=== PATIENT | male | born 1970 | race Caucasian/White ===

== ENCOUNTER 2016-08-15 11:25 | Day surgery (SDC) | payer BC ==
[2016-08-05 07:51] LABS: HEMATOCRIT 43.1 % (40.0-51.0)
--- NOTE | ~2016-08-15 | OP ---
Record Of Operation [facility] [address] [place]. [address] NAME: DEWAYNE TAFOYA : 68 STATUS : REG [facility] [place] PAT#: [id number] AGE: 46 ADM/REG DATE : 08/15/16 MR#: [id number] REPORT SERV DATE: 08/15/16 DICTATED BY: DEWAYNE CANTU III DATE: 08/15/16 REPORT STATUS : Draft TRANSCRIBED BY: MODL DATE: 08/15/16 DATE OF PROCEDURE: 08/15/2016 PREOPERATIVE DIAGNOSIS: Complex tear at the posterior horn of the medial meniscus, left knee. POSTOPERATIVE DIAGNOSIS: Complex tear at the posterior horn of the medial meniscus, left knee. SURGICAL PROCEDURE PERFORMED: Arthroscopic excision, complex tear at the posterior horn of the medial meniscus, left knee. SURGEON: Dewayne Cantu M.D. RECORDING STUDIO SET UP WORKER: Dewayne Ramos. ANESTHESIA: General. ANTIBIOTICS: Ancef 2 g. COMPLICATIONS: None. TOURNIQUET TIME: 60 minutes. PROCEDURE IN DETAIL: The patient was brought to the operating room, placed on the table in supine position and general anesthesia was induced. Ancef 2 g was administered intravenously in the operating room. Pneumatic tourniquet was applied to left upper thigh along with the arthroscopic leg leiva. Left lower extremity was prepped and draped in the usual sterile fashion, exsanguinated with a 6-inch Esmarch, and the tourniquet was inflated to 350 mmHg. Assuring good anesthesia, a standard anterolateral portal was provided. The arthroscope was inserted. The knee was inflated with sterile normal saline by means of the arthroscopic pump. Suprapatellar pouch was visualized. It was free of any loose bodies. Patellofemoral joint was in good condition. Medial and lateral gutters were normal. The intercondylar notch revealed a normal-appearing anterior cruciate ligament. The lateral compartment revealed normal lateral meniscus, lateral femoral condyle, and lateral tibial plateau. The medial compartment revealed a complex tear at the posterior horn of the medial meniscus, was a large fragment, could be pulled out into the joint. This was debrided with a 4.5 shaver and contoured with both the straight and angled ducklings. TAC-C wand was used to cauterize the trailing edge. The medial femoral condyle was in good condition. There was minimal wearing pattern. Minimal thermal chondroplasty was carried out at the weightbearing zone of the medial femoral condyle. Thorough irrigation was carried out. Instrumentation was removed. Portals were closed with 4-0 nylon. Knee was injected with 30 mL of 0.5% Marcaine solution. Sterile dressings were applied. Tourniquet was released after 60 minutes. The patient tolerated the procedure well, brought to the recovery in satisfactory condition. Record Of Operation [address] [address] NAME: DEWAYNE TAFOYA : 68 STATUS : REG [facility] [place] PAT#: [id number] AGE: 46 ADM/REG DATE : 08/15/16 MR#: [id number] REPORT SERV DATE: 08/15/16 DICTATED BY: DEWAYNE CANTU III DATE: 08/15/16 REPORT STATUS : Draft TRANSCRIBED BY: KANDACE DATE: 08/15/16 TB/KANDACE Dewayne Cantu III, M.D. / [id number] CC: Jose Juarez III, M.D.
[~2016-08-15 11:25] MED LIST: ADVIL; IBU400 PO; NEXIUM40 PO; TUMS E-X750 M2 PO; TUMSROLL PO
== END 2016-08-15 23:59 | disposition home or self-care (01) ==
LOC: MSC 11:25
PROVIDERS: Orthopaedic Surgery
PROC: 0SBD4ZZ Excision of Left Knee Joint, Percutaneous Endoscopic Approach (ICD-10-PCS; principal; 2016-08-15 13:15)
DX: S83.232A Complex tear of medial meniscus, current injury, left knee, initial encounter (principal); I47.1 Supraventricular tachycardia; J45.909 Unspecified asthma, uncomplicated; K21.9 Gastro-esophageal reflux disease without esophagitis; F41.9 Anxiety disorder, unspecified; F32.9 Major depressive disorder, single episode, unspecified; I49.9 Cardiac arrhythmia, unspecified; T75.3XXA Motion sickness, initial encounter; L30.9 Dermatitis, unspecified; K57.92 Diverticulitis of intestine, part unspecified, without perforation or abscess without bleeding; Z87.442 Personal history of urinary calculi; Z98.890 Other specified postprocedural states; Z90.89 Acquired absence of other organs; Z79.899 Other long term (current) drug therapy
CPT/HCPCS: 85014; 85018; 93005; A9270-GY; J0690; J1040; J2250; J2405; J3010